=== PATIENT | female | born 1955 | race Caucasian/White ===

== ENCOUNTER → 2018-12-13 | Outpatient (CLI) | payer OTHER | LOC: M.RAD 13:40 | DX: M48.07 Spinal stenosis, lumbosacral region (principal) ==

== ENCOUNTER → 2019-10-05 | Outpatient (CLI) | payer OTHER ==
[2019-10-05 12:53] LABS: CREATININE 0.9 mg/dL (0.6-1.3)
== END ==
LOC: M.CT 11:00
PROVIDERS: Internal Medicine
DX: K35.80 Unspecified acute appendicitis (principal)

== ENCOUNTER → 2020-06-14 | Outpatient (CLI) | payer OTHER | LOC: M.RAD 10:04 | PROVIDERS: ATTEND Internal Medicine | DX: M25.512 Pain in left shoulder (principal); M79.602 Pain in left arm ==